=== PATIENT | female | born 1980 | race Caucasian/White ===

== ENCOUNTER 2019-06-18 18:47 | Emergency (ER) | payer BC ==
--- OUTSIDE RECORDS SUMMARY | 2019-06-18 18:49 | XMS REPORT ---
:1980 Author Organization [facility] Address [address] [place] [address] Dr. Kerr [address] [place] [id number] Care Team Providers Name Role Phone Unavailable Unavailable Unavailable Problems This patient has no known problems. Allergies, Adverse Reactions, Alerts This patient has no known allergies or adverse reactions. Medications This patient has no known medications.
[2019-06-18] MEDS ORDERED: ACETAMINOPHEN 500 MG TAB ONE (19:33)
[2019-06-18] MEDS ORDERED: IBUPROFEN 200 MG TAB PO ONE (19:33)
--- NOTE | 2019-06-18 20:00 | RAD REPORT ---
EXAM DESCRIPTION: RAD - Tib Fib Left - 06/18/2019 7:52 pm CLINICAL HISTORY: PAIN COMPARISON: No comparisons FINDINGS: Hardware is present distal fibula as well as the medial malleolus. No hardware loosening s een. No fracture apparent. Posterior and plantar calcaneal spurs noted. IMPRESSION: No acute findings seen.
--- NOTE | 2019-06-18 20:49 | ER ---
Nurse's Notes [facility] Name: Polo Izaguirre Age: 38 yrs Sex: Female : 1980 Arrival Date: 06/18/2019 Time: 18:49 Bed 24 Private MD: Diagnosis: Pain in left ankle and joints of left foot Presentation: 06/17 19:06 Chief complaint: Patient states: "a few days ago I went down a slide and I think I hurt aa5 my left leg". Pt c/o pain to left lower leg. Coronavirus screen: The patient has NOT traveled to a country currently being monitored by the [facility] within the last 14 days. Ebola Screen: Patient negative for fever greater than or equal to 101.5 degrees Fahrenheit, and additional compatible Ebola Virus Disease symptoms. Initial Sepsis Screen: Does the patient meet any 2 criteria? No. Patient's initial sepsis screen is negative. Does the patient have a suspected source of infection? No. Patient's initial sepsis screen is negative. Risk Assessment: Do you want to hurt yourself or someone else? Patient reports no desire to harm self or others. 19:06 Method Of Arrival: Ambulatory aa5 19:06 Acuity: SARAH 4 aa5 20:05 Onset of symptoms was June 17, 2019 at 15:00. vc Triage Assessment: 20:03 General: Appears in no apparent distress. comfortable, Behavior is calm, cooperative, vc appropriate for age. Pain: Complains of pain in lateral aspect of left calf. 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 - Social history:: Smoking status: Patient reports the use of cigarette tobacco products, smokes one pack cigarettes per day. Screenin:20 Abuse screen: Denies threats or abuse. Nutritional screening: No deficits noted. vc Tuberculosis screening: No symptoms or risk factors identified. Fall Risk None identified. Assessment: 19:20 General: Appears in no apparent distress. uncomfortable, Behavior is calm, cooperative, vc appropriate for age. Pain: Complains of pain in lateral aspect of left calf. Neuro: Level of Consciousness is awake, alert, obeys commands. Cardiovascular: Patient's skin is warm and dry. Respiratory: Airway is patent. GI: Abdomen is round. : No signs and/or symptoms were reported regarding the genitourinary system. EENT: No signs and/or symptoms were reported regarding the EENT system. Derm: Skin is healthy with good turgor, Skin temperature is warm. Musculoskeletal: Circulation, motion, and sensation intact. Range of motion: intact in all extremities, Reports pain in lateral aspect of left calf. 20:20 Reassessment: Patient and/or family updated on plan of care and expected duration. Pain vc level reassessed. Patient is alert, oriented x 3, equal unlabored respirations, skin warm/dry/pink. Patient states symptoms have not improved. 21:00 Reassessment: Patient and/or family updated on plan of care and expected duration. Pain vc level reassessed. Patient is alert, oriented x 3, equal unlabored respirations, skin warm/dry/pink. Patient states feeling better. Vital Signs: 19:08 BP 149 / 92; Pulse 115; Resp 18 S; Temp 99.2(TE); Pulse Ox 99% on R/A; Weight 106.59 kg aa5 (R); Height 5 ft. 2 in. (157.48 cm) (R); Pain 10/10; 20:00 BP 115 / 77; Pulse 97; Resp 18; Pulse Ox 98% on R/A; vc 19:08 Body Mass Index 42.98 (106.59 kg, 157.48 cm) aa5 ED Course: 18:49 Patient arrived in ED. ag5 19:06 Triage completed. aa5 19:06 Arm band placed on. aa5 19:12 Pk Jon[facility]-C is [facility]. la1 19:12 Dell Stanford MD is Attending Physician. la1 19:20 Patient has correct armband on for positive identification. Side rails up X 1. Pulse ox vc on. NIBP on. 19:26 Jazmin Davenport, DAQUAN is Primary Nurse. vc 20:03 No provider procedures requiring assistance completed. Patient did not have IV access vc during this emergency room visit. Administered Medications: 19:35 Drug: Motrin 600 mg Route: PO; vc 19:35 Drug: Tylenol 1000 mg Route: PO; vc Outcome: 20:48 Discharge ordered by MD. king 20:59 Discharged to home ambulatory. vc 20:59 Condition: improved 20:59 Discharge instructions given to patient, Instructed on discharge instructions, follow up and referral plans. Demonstrated understanding of instructions, follow-up care, medications. 21:00 Patient left the ED. vc Signatures: Vy Posada, RN RN aa5 Pk Jonas, LIVESTOCK BUYER-C LIVESTOCK BUYER-Cla1 Cheyanne Malik ag5 Jazmin Davenport RN RN vc
--- NOTE | 2019-06-18 20:49 | EDPHYS ---
Physician Documentation [facility] Name: Polo Izaguirre Age: 38 yrs Sex: Female : 1980 Arrival Date: 06/18/2019 Time: 18:49 Bed 24 Private MD: ED Physician Dell Stanford HPI: 06/17 19:30 This 38 yrs old Female presents to ER via Ambulatory with complaints of Leg la1 Pain. 19:30 The patient presents with pain. The complaints affect the lateral aspect of left calf. la1 Context: resulted from the patient falling, the patient can fully bear weight, the patient is able to ambulate. Onset: The symptoms/episode began/occurred yesterday. Modifying factors: The symptoms are alleviated by nothing. the symptoms are aggravated by movement. Associated signs and symptoms: Pertinent negatives calf tenderness, fever, numbness, swelling, tingling, warmth, weakness. Treatment prior to arrival includes: barb wrap, over the counter medications, NSAIDS. Severity of symptoms: At their worst the symptoms were mild. The patient has experienced a previous episode. 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 - Social history:: Smoking status: Patient reports the use of cigarette tobacco products, smokes one pack cigarettes per day. ROS: 19:30 Constitutional: Negative for fever, chills, and weight loss, Eyes: Negative for injury, la1 pain, redness, and discharge, ENT: Negative for injury, pain, and discharge, Neck: Negative for injury, pain, and swelling, Cardiovascular: Negative for chest pain, palpitations, and edema, Respiratory: Negative for shortness of breath, cough, wheezing, and pleuritic chest pain, Abdomen/GI: Negative for abdominal pain, nausea, vomiting, diarrhea, and constipation, Back: Negative for injury and pain, : Negative for injury, bleeding, discharge, and swelling. 19:30 Skin: Negative for injury, rash, and discoloration. 19:30 MS/extremity: Positive for pain, of the lateral aspect of left calf. Exam: 19:31 Constitutional: This is a well developed, well nourished patient who is awake, alert, la1 and in no acute distress. Head/Face: Normocephalic, atraumatic. Respiratory: No increased work of breathing, no retractions or nasal flaring. Skin: Warm, dry with normal turgor. Normal color with no rashes, no lesions, and no evidence of cellulitis. MS/ Extremity: Pulses equal, no cyanosis. Neurovascular intact. Full, normal range of motion. Vital Signs: 19:08 BP 149 / 92; Pulse 115; Resp 18 S; Temp 99.2(TE); Pulse Ox 99% on R/A; Weight 106.59 kg aa5 (R); Height 5 ft. 2 in. (157.48 cm) (R); Pain 10/10; 20:00 BP 115 / 77; Pulse 97; Resp 18; Pulse Ox 98% on R/A; vc 19:08 Body Mass Index 42.98 (106.59 kg, 157.48 cm) aa5 MDM: 19:12 Patient medically screened. la1 20:47 Data reviewed: vital signs, nurses notes, radiologic studies, and as a result, I will la1 discharge patient. Data interpreted: Pulse oximetry: on room air is 98 %. Interpretation: normal. Counseling: I had a detailed discussion with the patient and/or guardian regarding: the historical points, exam findings, and any diagnostic results supporting the discharge/admit diagnosis, radiology results, the need for outpatient follow up, a orthopedic surgeon. 06/17 19:26 Order name: Tib Fib Left XRAY la1 06/17 20:02 Order name: RAD; Complete Time: 20:36 EDMS Administered Medications: 19:35 Drug: Motrin 600 mg Route: PO; vc 19:35 Drug: Tylenol 1000 mg Route: PO; vc Disposition: 21:56 Co-signature as Attending Physician, Dell Stanford MD. pkl Disposition: 06/18/19 20:48 Discharged to Home. Impression: Pain in left ankle and joints of left foot. - Condition is Stable. - Discharge Instructions: Joint Pain, Ankle Pain. - Medication Reconciliation Form, Thank You Letter form. - Follow up: Private Physician; When: 2 - 3 days; Reason: Recheck today's complaints, Re-evaluation by your physician. - Problem is new. - Symptoms have improved. Signatures: Dispatcher [employer] EDMS Dell Stanford MD MD pkl Calderon, Audri, RN RN aa5 Pk Jonas, FARM FIELD MANAGER-C FARM FIELD MANAGER-Cla1 Jazmin Davenport RN RN vc Corrections: (The following items were deleted from the chart) 21:00 20:48 06/18/2019 20:48 Discharged to Home. Impression: Pain in left ankle and joints of vc left foot. Condition is Stable. Forms are Medication Reconciliation Form, Thank You Letter, Antibiotic Education, Prescription Opioid Use. Follow up: Private Physician; When: 2 - 3 days; Reason: Recheck today's complaints, Re-evaluation by your physician. Problem is new. Symptoms have improved. la1
[2019-06-18 21:05] VITALS: TEMP 99.2
[2019-06-18 21:06] VITALS: BP 115/77; O2SAT 98
== END 2019-06-18 21:00 | disposition home or self-care (01) ==
LOC: ER 18:47
DX: M25.572 Pain in left ankle and joints of left foot (principal); Z88.0 Allergy status to penicillin; F17.210 Nicotine dependence, cigarettes, uncomplicated
CPT/HCPCS: 99283